=== PATIENT | female | born 1940 | race Caucasian/White ===

== ENCOUNTER 2018-12-12 19:10 | Inpatient (IN) | payer MEDICARE ==
[~2018-12-12] VITALS: Ht 154.9 cm; Wt 95.5 kg
[~2018-12-12 19:10] MED LIST: ASPI-1265 PO; ATOR40TA72 PO; CHOL100046 PO; DICL75TA5 PO; HYDR12.55 PO; LEVO150T8 PO; LIOT5TAB10 PO; LOSA50TA3 PO; MAGN64TA10 PO; METH750T3 PO; METO25TA6 PO; MULT-1085 PO; RANI150T8 PO
[2018-12-12 19:48] LABS: BASOPHILS % (AUTO) 0.6 % (0-1); EOSINOPHILS # (AUTO) 0.1 X10'3 (0-0.9); EOSINOPHILS % (AUTO) 1.3 % (0-6); HEMATOCRIT 42.9 % (35.0-45.0); HEMOGLOBIN 14.4 g/dl (12.0-16.0); LYMPHOCYTES # (AUTO) 1.5 X10'3 (1.1-4.8); MEAN CORPUSCULAR HEMOGLOBIN 32.1 PG (27.0-31.0); MEAN CORPUSCULAR HGB CONC 33.6 g/dL (33.0-36.5); MEAN CORPUSCULAR VOLUME 95.5 FL (78-98); MONOCYTES # (AUTO) 0.7 X10'3 (0-0.9); MONOCYTES % (AUTO) 8.1 % (2-12); NEUTROPHILS # (AUTO) 6.1 X10'3 (1.8-7.7); PLATELET COUNT 265 X10'3 (140-440); RED CELL DISTRIBUTION WIDTH 14.1 % (11.5-14.5); WHITE BLOOD COUNT 8.4 X10'3 (4.5-11.0)
[2018-12-12 19:52] LABS: PARTIAL THROMBOPLASTIN TIME 23 SECONDS (22-32)
[2018-12-12 19:54] LABS: ALANINE AMINOTRANSFERASE 22 U/L (12-78); ALBUMIN 3.5 G/DL (3.4-5.0); ALKALINE PHOSPHATASE 108 IU/L (46-116); ANION GAP 10 (8-16); ASPARTATE AMINO TRANSFERASE 18 U/L (10-37); BILIRUBIN,TOTAL 0.5 MG/DL (0.1-1.0); BLOOD UREA NITROGEN 7 MG/DL (7-18); BUN/CREATININE RATIO 9.9 (6.6-38.0); CALCIUM 8.7 MG/DL (8.5-10.1); CHLORIDE 107 MMOL/L (99-107); CREATININE 0.71 MG/DL (0.40-0.90); GLUCOSE 113 MG/DL (70-104); POTASSIUM 3.2 MMOL/L (3.5-5.1); SODIUM 144 MMOL/L (135-145); TOTAL CARBON DIOXIDE 27.1 MMOL/L (24-32); TOTAL PROTEIN 6.9 G/DL (6.4-8.2); eGFR 80 ML/MIN
[2018-12-12 19:57] LABS: LIPASE 60 U/L (73-393); TROPONIN I < 0.04 NG/ML (0.0-0.05)
[2018-12-12] MEDS ORDERED: fentaNYL/PF 50MCG/1 ML 2ML syringe IV ONE ×3 (20:10→23:05)
[2018-12-12] MEDS ORDERED: ondansetron/PF 4mg/2ml inj IV ONE (20:10)
[2018-12-12 20:45] LABS: CLARITY,URINE CLEAR (Clear); COLOR,URINE YELLOW (Yellow); GLUCOSE, URINE NEGATIVE (Neg); KETONES,URINE NEGATIVE (Neg); LEUKOCYTE ESTERASE ,URINE NEGATIVE (Neg); NITRITES, URINE NEGATIVE (Neg); OCCULT BLOOD,URINE NEGATIVE (Neg); PROTEIN,URINE NEGATIVE (Neg); UROBILINOGEN,URINE 0.2 E.U/dL (0.2-1.0)
[2018-12-12 20:54] LABS: UA COLLECTION TYPE OTHER
--- NOTE | 2018-12-12 22:24 | NUR ---
PT UP WITH SBA TO [facility]. VOIDING 250 CC'S. JUST GIVEN FENTANYL 25 MCG IV FOR PAIN OF 8 OUT OF 10 TO RIGHT HIP AND MID ABDOMEN. SON AT BEDSIDE.
[2018-12-13] MEDS ORDERED: potassium Cl 20 mEq SR tablet PO PRN (00:45)
[2018-12-13] MEDS ORDERED: mag hydrox/Alum hydrox/simeth 30ml oral suspension PO PRN (00:45)
[2018-12-13] MEDS ORDERED: ondansetron/PF 4mg/2ml inj IV ONE (00:45)
[2018-12-13] MEDS ORDERED: ondansetron/PF 4mg/2ml inj IV PRN (00:45)
[2018-12-13] MEDS ORDERED: HYDROcodone/acetaminophen 5mg/325mg tablet PO PRN (00:45)
[2018-12-13] MEDS ORDERED: acetaminophen 325mg tablet PO PRN ×2 (00:45)
[2018-12-13] MEDS ORDERED: magnesium hydroxide 30ml (MOM) UD suspension PO PRN (00:45)
[2018-12-13] MEDS ORDERED: potassium CL 10mEq/100ml bag 100 ML IV PRN ×2 (00:45)
[2018-12-13] MEDS ORDERED: metoclopramide 5 mg/ml inj IV PRN (00:45)
[2018-12-13] MEDS: normal saline 1000ml 1,000 ML IV SCH ×3 (01:30→23:31)
[2018-12-13 02:00] VITALS: BP 162/78
[2018-12-13] MEDS: HYDROmorphone inj. 0.5 MG/0.5 ML DISP.SYRIN IV PRN ×4 (02:22→23:32)
--- NOTE | 2018-12-13 07:03 | NUR ---
Problems reprioritized. Patient report given, questions answered & plan of care reviewed with RIMA. Addendum: 12/13/18 at 0704 by Vipin Hill RN Amended: Links added.
--- NOTE | 2018-12-13 07:18 | NUR ---
Patient in room [facility]. I have received report from Josh FINCH and had the opportunity to ask questions and assume patient care.
[2018-12-13] MEDS: K and/or MAG REPLACEMENT MC SCH (08:34)
[2018-12-13] MEDS: potassium Cl 20 mEq SR tablet PO PRN ×2 (08:51→17:58)
[2018-12-13] MEDS: aspirin 81mg tab.chew PO SCH (08:53)
[2018-12-13] MEDS: multivitamins, therapeutics tablet PO SCH (08:53)
[2018-12-13] MEDS: vitamin D (cholecalciferol) 1,000 unit tablet PO SCH (08:54)
[2018-12-13] MEDS: levoTHYROXINE 75mcg tablet PO SCH (08:55)
[2018-12-13] MEDS: enoxaparin 40mg/0.4ml syringe SUBCUT SCH (08:55)
[2018-12-13] MEDS: liothyronine sod 5mcg tablet PO SCH (08:56)
[2018-12-13] MEDS: losartan 50mg tablet PO SCH (08:56)
[2018-12-13] MEDS: magnesium Cl slow-release 64mg tablet PO SCH (08:56)
[2018-12-13] MEDS: HYDROchlorothiazide 12.5mg capsule PO SCH (08:56)
[2018-12-13] MEDS: famotidine 20mg tablet PO SCH (08:56)
[2018-12-13] MEDS: metoprolol tartrate 25mg tablet PO SCH (08:57)
[2018-12-13] MEDS: atorvastatin 20mg tablet PO SCH (08:58)
[2018-12-13] MEDS: cyclobenzaprine 10mg tablet PO SCH ×3 (08:58→21:27)
--- NOTE | 2018-12-13 09:12 | NUR ---
Student Medication Administration: For this medication-pass time frame, all medication were reviewed, dispensed, administered and documented per hospital policy by Aliyah RATLIFF [facility].
--- NOTE | 2018-12-13 11:24 | NUR ---
Patient in room [facility]. I have received report from Chiquita and had the opportunity to ask questions and assume patient care.
--- NOTE | 2018-12-13 11:58 | NUR ---
Problems reprioritized. Patient report given, questions answered & plan of care reviewed with Lupe.
--- NOTE | 2018-12-13 18:09 | NUR ---
Problems reprioritized. Patient report given, questions answered & plan of care reviewed with Megha FINCH.
--- NOTE | 2018-12-13 18:38 | NUR ---
Problems reprioritized. Patient report given, questions answered & plan of care reviewed with Markus FINCH.
--- NOTE | 2018-12-13 18:45 | NUR ---
Patient in room [facility]. I have received report from Arik Leon RN and had the opportunity to ask questions and assume patient care.
--- NOTE | 2018-12-13 19:32 | NUR ---
patient refused VSS from [employer] @ 1900, she did not want to move because she is in pain. She requested pain medication and when I brought it in for her she was crying and refused it. I asked her why she was crying and she told me that she hurt. I explained that the pain medication would help relive her pain, and help her relax. She still refused the medication. I told her to let me know when she decides that she wants it. I informed her that i knew she wanted to be left alone now but in awhile I will need to do an assessment on her. She yelled out;" I am not a 12 year old, just leave me alone"!
[2018-12-13] MEDS ORDERED: temazepam 15mg capsule PO PRN (21:00)
--- NOTE | 2018-12-13 21:00 | NUR ---
Patient still is refusing pain medication, and for me to do an assessment on her. She dis take prescribed medication. Once again I informed her that the pain medication would relieve her pain and make her more comfortable. She stated she want to be left alone. I told her if she changed her mind to turn on the call light. I also offered her a warm pack to put against her left hip and she agreed to that. Her pain is from her left hip not her abdomen.
[2018-12-13] MEDS ORDERED: hyDRALAzine 10mg tablet PO PRN (21:30)
[2018-12-14] VITALS: BP 154/81
[2018-12-14 05:51] LABS: ANION GAP 6 (8-16); BLOOD UREA NITROGEN 8 MG/DL (7-18); BUN/CREATININE RATIO 10.1 (6.6-38.0); CALCIUM 8.6 MG/DL (8.5-10.1); CHLORIDE 109 MMOL/L (99-107); CREATININE 0.79 MG/DL (0.40-0.90); GLUCOSE 93 MG/DL (70-104); POTASSIUM 3.7 MMOL/L (3.5-5.1); SODIUM 143 MMOL/L (135-145); TOTAL CARBON DIOXIDE 27.8 MMOL/L (24-32); eGFR 71 ML/MIN
[2018-12-14 05:57] LABS: BASOPHILS % (AUTO) 0.6 % (0-1); EOSINOPHILS # (AUTO) 0.2 X10'3 (0-0.9); EOSINOPHILS % (AUTO) 3.4 % (0-6); HEMATOCRIT 38.9 % (35.0-45.0); HEMOGLOBIN 13.1 g/dl (12.0-16.0); LYMPHOCYTES # (AUTO) 1.8 X10'3 (1.1-4.8); LYMPHOCYTES % (AUTO) 26.5 % (21-51); MEAN CORPUSCULAR HEMOGLOBIN 32.4 PG (27.0-31.0); MEAN CORPUSCULAR HGB CONC 33.6 g/dL (33.0-36.5); MEAN CORPUSCULAR VOLUME 96.4 FL (78-98); MEAN PLATELET VOLUME 8.2 FL (7.4-10.4); MONOCYTES # (AUTO) 0.7 X10'3 (0-0.9); NEUTROPHILS # (AUTO) 3.9 X10'3 (1.8-7.7); NEUTROPHILS % (AUTO) 59.5 % (42-75); PLATELET COUNT 215 X10'3 (140-440); RED BLOOD COUNT 4.03 X10'6 (4.20-5.60); RED CELL DISTRIBUTION WIDTH 14.5 % (11.5-14.5); WHITE BLOOD COUNT 6.6 X10'3 (4.5-11.0)
--- NOTE | 2018-12-14 06:35 | NUR ---
Patient in room [facility]. I have received report from STEF RDZ and had the opportunity to ask questions and assume patient care.
[2018-12-14] MEDS: normal saline 1000ml 1,000 ML IV SCH (06:42)
--- NOTE | 2018-12-14 06:49 | NUR ---
Problems reprioritized. Patient report given, questions answered & plan of care reviewed with Marivel and Melany FINCH.
[2018-12-14 07:00] VITALS: BP 127/72
[2018-12-14] MEDS: HYDROmorphone inj. 0.5 MG/0.5 ML DISP.SYRIN IV PRN (07:53)
[2018-12-14] MEDS: K and/or MAG REPLACEMENT MC SCH (08:00)
[2018-12-14] MEDS: cyclobenzaprine 10mg tablet PO SCH (10:13)
[2018-12-14 10:16] VITALS: BP_SYST 127
[2018-12-14] MEDS: metoprolol tartrate 25mg tablet PO SCH (10:16)
[2018-12-14] MEDS: magnesium Cl slow-release 64mg tablet PO SCH (10:17)
[2018-12-14] MEDS: vitamin D (cholecalciferol) 1,000 unit tablet PO SCH (10:17)
[2018-12-14] MEDS: aspirin 81mg tab.chew PO SCH (10:17)
[2018-12-14] MEDS: liothyronine sod 5mcg tablet PO SCH (10:17)
[2018-12-14] MEDS: HYDROchlorothiazide 12.5mg capsule PO SCH (10:18)
[2018-12-14] MEDS: famotidine 20mg tablet PO SCH (10:18)
[2018-12-14] MEDS: multivitamins, therapeutics tablet PO SCH (10:18)
[2018-12-14] MEDS: losartan 50mg tablet PO SCH (10:18)
[2018-12-14] MEDS: levoTHYROXINE 75mcg tablet PO SCH (10:19)
[2018-12-14] MEDS: atorvastatin 20mg tablet PO SCH (10:19)
[2018-12-14] MEDS: enoxaparin 40mg/0.4ml syringe SUBCUT SCH (10:25)
--- NOTE | 2018-12-14 11:40 | NUR ---
PT DICHARGED HOME WITH SON, IV TAKEN OUT, NO TELE, ALL BELONGINGS TAKEN FROM ROOM, NO NEW MEDS, PT APPROPRIATE FOR DISCHARGE, TAKEN OUT IN WHEEL CHAIR TO [facility]
== END 2018-12-14 11:40 | disposition home or self-care (01) | DRG 392 ==
LOC: ER 19:10 → OBSVTOIN 12-13 01:16 → SUR 3N 12-13 01:16 → CMPBEDREQ 12-13 01:19
PROVIDERS: ADMIT Hospitalist; ATTEND Family Medicine
DX: K29.70 Gastritis, unspecified, without bleeding (principal); E03.9 Hypothyroidism, unspecified; E78.5 Hyperlipidemia, unspecified; E87.6 Hypokalemia; I10 Essential (primary) hypertension; M25.552 Pain in left hip; T39.395A Adverse effect of other nonsteroidal anti-inflammatory drugs [NSAID], initial encounter; K21.0 Gastro-esophageal reflux disease with esophagitis; Z96.641 Presence of right artificial hip joint; Z96.653 Presence of artificial knee joint, bilateral; G89.29 Other chronic pain; M19.90 Unspecified osteoarthritis, unspecified site; M54.9 Dorsalgia, unspecified; Z79.899 Other long term (current) drug therapy; Z91.041 Radiographic dye allergy status; Z91.048 Other nonmedicinal substance allergy status; Z90.49 Acquired absence of other specified parts of digestive tract; Z79.82 Long term (current) use of aspirin; Z79.890 Hormone replacement therapy; Y92.89 Other specified places as the place of occurrence of the external cause
CPT/HCPCS: 36415; 74176; 74181; 76700; 80048; 80053; 81003; 83690; 84484; 85025; 85610; 85730; 87081; 93005; 96374; 96375; 96376; 99285; G0378; J1170; J1650; J2405; J3010; J7030

== ENCOUNTER 2019-01-30 08:13 | Inpatient (IN) | payer MEDICARE ==
[2019-01-24 11:21] LABS: CLARITY,URINE SLIGHTLY CLOUDY (Clear); COLOR,URINE YELLOW (Yellow); GLUCOSE, URINE NEGATIVE (Neg); KETONES,URINE NEGATIVE (Neg); LEUKOCYTE ESTERASE ,URINE TRACE (Neg); NITRITES, URINE NEGATIVE (Neg); OCCULT BLOOD,URINE NEGATIVE (Neg); PH,URINE 6.5 (4.8-8.0); PROTEIN,URINE NEGATIVE (Neg); UROBILINOGEN,URINE 0.2 E.U/dL (0.2-1.0)
[2019-01-24 11:28] LABS: UA COLLECTION TYPE VOIDED
[2019-01-24 11:33] LABS: BACTERIA,URINE 1+ /HPF (Neg); RBC,URINE 0-2 /HPF (0-2); SQUAMOUS EPITHELIAL CELL,UR MANY /LPF (FEW)
[2019-01-24 11:34] LABS: WBC CLUMPS,URINE FEW /HPF (NEGATIVE)
[2019-01-24 11:35] LABS: BASOPHILS % (AUTO) 0.6 % (0-1); EOSINOPHILS # (AUTO) 0.3 X10'3 (0-0.9); EOSINOPHILS % (AUTO) 3.8 % (0-6); LYMPHOCYTES # (AUTO) 1.1 X10'3 (1.1-4.8); LYMPHOCYTES % (AUTO) 15.8 % (21-51); MEAN CORPUSCULAR HEMOGLOBIN 32.4 PG (27.0-31.0); MEAN CORPUSCULAR HGB CONC 33.8 g/dL (33.0-36.5); MEAN CORPUSCULAR VOLUME 96.1 FL (78-98); MEAN PLATELET VOLUME 7.7 FL (7.4-10.4); MONOCYTES # (AUTO) 0.5 X10'3 (0-0.9); MONOCYTES % (AUTO) 7.4 % (2-12); NEUTROPHILS # (AUTO) 5.1 X10'3 (1.8-7.7); NEUTROPHILS % (AUTO) 72.4 % (42-75); PRE OP HEMATOCRIT 42.6 % (35.0-45.0); PRE OP HEMOGLOBIN 14.4 g/dL (12.0-16.0); PRE OP PLATELET COUNT 232 X10'3 (140-440); RED BLOOD COUNT 4.43 X10'6 (4.20-5.60); RED CELL DISTRIBUTION WIDTH 14.4 % (11.5-14.5)
[2019-01-24 11:35] LABS: MUCUS STRANDS FEW /LPF (Neg)
[2019-01-24 11:44] LABS: PRE OP INR 1.1 INR; PRE OP PROTIME 11.3 SECONDS (9.0-12.0)
[2019-01-24 11:54] LABS: ALBUMIN 3.5 G/DL (3.4-5.0); ALBUMIN/GLOBULIN RATIO 0.9 (1.1-1.5); ALKALINE PHOSPHATASE 117 IU/L (46-116); BLOOD UREA NITROGEN 17 MG/DL (7-18); BUN/CREATININE RATIO 20.5 (6.6-38.0); CALCIUM 9.1 MG/DL (8.5-10.1); CHLORIDE 106 MMOL/L (99-107); CREATININE 0.83 MG/DL (0.40-0.90); PRE OP ALT 22 U/L (30-65); PRE OP ANION GAP 6 (8-16); PRE OP AST 24 U/L (10-37); PRE OP BILIRUB, TOTAL 0.6 MG/DL (0.0-1.0); PRE OP GLUCOSE 119 MG/DL (70-104); PRE OP POTASSIUM 3.7 MMOL/L (3.4-5.1); PRE OP SODIUM 144 MMOL/L (135-145); TOTAL CARBON DIOXIDE 31.8 MMOL/L (24-32); TOTAL PROTEIN 7.3 G/DL (6.4-8.2); eGFR 67 ML/MIN
[~2019-01-30] VITALS: Ht 154.9 cm; Wt 90.4 kg
[2019-01-30] VITALS (21 sets, daily range): BP systolic 96–185; BP diastolic 44–94
[2019-01-30] MEDS: HYDROchlorothiazide 12.5mg capsule PO SCH (08:00)
[2019-01-30] MEDS: magnesium Cl slow-release 64mg tablet PO SCH (08:00)
[2019-01-30] MEDS: liothyronine sod 5mcg tablet PO SCH (08:00)
[2019-01-30] MEDS: cetirizine 10mg tablet PO SCH (08:00)
[2019-01-30] MEDS: gabapentin 300mg capsule PO SCH ×3 (08:00→20:29)
[2019-01-30] MEDS: levoTHYROXINE 75mcg tablet PO SCH (08:00)
[2019-01-30] MEDS: ascorbic acid 500mg tablet PO SCH ×2 (08:00→20:30)
[2019-01-30] MEDS: atorvastatin 20mg tablet PO SCH (08:00)
[2019-01-30] MEDS: metoprolol tartrate 25mg tablet PO SCH (08:00)
[2019-01-30] MEDS: multivitamins, therapeutics tablet PO SCH (08:00)
[2019-01-30] MEDS: oxybutynin 5mg tablet PO SCH ×3 (08:00→20:30)
[~2019-01-30 08:13] MED LIST changes: -ASPI-1265 PO; +BUPR1PAT TOP; +CETI-194 PO; +DICL50TA6 PO; -DICL75TA5 PO; +DOCUMENT DATE & TIME OF BETA-BLOCKER PO ONE; +GABA600T13 PO; +HYDROmorphone 1 mg/ml syringe IV PRN; +HYDROmorphone inj. 0.5 MG/0.5 ML DISP.SYRIN IV PRN; -LOSA50TA3 PO; -METH750T3 PO; +OXYB5TAB16 PO; +POTA20TA19 PO; -RANI150T8 PO; +TEMA15CA5 PO; +THIO300C PO; +VANCOMYCIN INJ 1000 MG in NORMAL SALINE 250ml IV.SOLN IV ONE; +[UNRECOGNIZED DRUG - CODE] PO; +acetaminophen 325mg tablet PO ONE; +acetaminophen 325mg tablet PO PRN; +bisacodyl 10mg suppository rectal RC PRN; +cefazolin/dext.iso 2gm/50ml 50 ML IV ONE; +celeCOXIB 100mg capsule PO ONE; +diphenhydrAMINE 25mg capsule PO PRN; +famotidine 20mg tablet PO ONE; +gabapentin 300mg capsule PO ONE; +magnesium hydroxide 30ml (MOM) UD suspension PO PRN; +metoclopramide 5 mg/ml inj IV ONE; +ondansetron/PF 4mg/2ml inj IV PRN; +oxyCODONE SR 10mg (sust. release) tab -2 tabs (20mg) PO ONE; +potassium Cl 20 mEq SR tablet PO SCH; +ringers solution, lacted 1,000 ML IV SCH; +temazepam 15mg capsule PO PRN; +tranexamic acid inj. 1,000 MG in normal saline 100 ML IV ONE; +vancomycin inj 1,500 MG in normal saline 300ml IV soln IV ONE
[2019-01-30] MEDS: aspirin 325mg tablet PO SCH (08:30)
[2019-01-30] MEDS ORDERED: cloNIDine hcl/PF 100mcg/ml inj ONE (10:34)
[2019-01-30] MEDS ORDERED: epiNEPHrine 1 mg/ml inj ONE (10:34)
[2019-01-30] MEDS ORDERED: ROPIVAcaine 0.5% (5mg/ml) 30ml vial ONE (10:34)
[2019-01-30] MEDS ORDERED: ketorolac trometh. 30mg/ml inj. ONE (10:34)
[2019-01-30] MEDS ORDERED: vancomycin 1,000mg inj ONE (10:34)
[2019-01-30] MEDS ORDERED: sevoflurane 250ml liquid IH ONE (10:44)
[2019-01-30] MEDS ORDERED: fentaNYL /PF 50mcg/ml 5ml ampule ONE (10:54)
[2019-01-30] MEDS ORDERED: propofol inj 20 ML IV ONE (12:02)
[2019-01-30] MEDS ORDERED: rocuronium 10mg/ml inj IV ONE (12:02)
[2019-01-30] MEDS ORDERED: acetaminophen 1,000mg/100ml IV 100 ML IV ONE (12:02)
[2019-01-30] MEDS ORDERED: ringers solution, lacted 1,000 ML IV SCH (12:08)
[2019-01-30] MEDS ORDERED: proCHLORperazine 10 MG/2 ml inj IV PRN (12:10)
[2019-01-30] MEDS ORDERED: meperidine/PF 25mg/ml syringe IV PRN ×2 (12:10)
[2019-01-30] MEDS ORDERED: morphine 4 MG/ML inj SYRINge IV PRN (12:10)
[2019-01-30] MEDS ORDERED: ondansetron/PF 4mg/2ml inj IV PRN (12:10)
[2019-01-30] MEDS ORDERED: neostigmine methylsulfate 1 MG/ML 10ml vial ONE (12:15)
[2019-01-30] MEDS ORDERED: glycopyrrolate 0.2mg/ml inj ONE (12:15)
--- NOTE | 2019-01-30 12:39 | NUR ---
Received from OR via , accompanied by Anesthesiologist DR STAUFFER and report given by Anesthesiolgist. AWAKENS TO VOICE. VITALS STABLE. DRESSING DI. STATES PAIN TO LT HIP. CHAVEZ WITH CLEAR URINE.
[2019-01-30] MEDS: morphine 4 MG/ML inj SYRINge IV PRN ×2 (13:01→13:15)
[2019-01-30] MEDS: meperidine/PF 25mg/ml syringe IV PRN ×2 (13:34→14:01)
--- NOTE | 2019-01-30 14:09 | NUR ---
Report called to receiving nurse. Transferred via BED Belongings . Special Issues communicated to receiving nurse. AWAKE AND ORIENTED. VITALS STABLE. DRESSING DI. STATES PAIN IMPROVING. TO ORTHO RM 4009C AT THIS TIME.
[2019-01-30] MEDS: potassium cl 20mEq in 1/2 NS 1,000 ML IV SCH ×3 (14:35→22:35)
[2019-01-30] MEDS ORDERED: tranexamic acid inj. 900 MG in normal saline 100ml IV soln 100 ML IV ONE (15:30)
[2019-01-30] MEDS: cefazolin/dext.iso 2gm/50ml 50 ML IV SCH (18:13)
--- NOTE | 2019-01-30 18:45 | NUR ---
Problems reprioritized. Patient report given, questions answered & plan of care reviewed with STEF Mejia.
[2019-01-30] MEDS: HYDROcodone/acetaminophen 10/325mg tab PO PRN ×2 (19:40→23:40)
[2019-01-30] MEDS: sennosides 8.6mg tablet PO SCH (20:29)
[2019-01-31] MEDS: cefazolin/dext.iso 2gm/50ml 50 ML IV SCH (01:14)
[2019-01-31 02:00] VITALS: BP 92/46
[2019-01-31 04:43] LABS: EOSINOPHILS # (AUTO) 0.4 X10'3 (0-0.9); HEMOGLOBIN 11.6 g/dl (12.0-16.0); LYMPHOCYTES # (AUTO) 1.6 X10'3 (1.1-4.8); MONOCYTES # (AUTO) 0.5 X10'3 (0-0.9); RED BLOOD COUNT 3.52 X10'6 (4.20-5.60); WHITE BLOOD COUNT 6.8 X10'3 (4.5-11.0)
[2019-01-31 04:45] LABS: ANION GAP 8 (8-16); BASOPHILS % (AUTO) 0.6 % (0-1); CHLORIDE 103 MMOL/L (99-107); EOSINOPHILS % (AUTO) 5.4 % (0-6); HEMATOCRIT 33.9 % (35.0-45.0); LYMPHOCYTES % (AUTO) 23.8 % (21-51); MEAN CORPUSCULAR HGB CONC 34.3 g/dL (33.0-36.5); MEAN CORPUSCULAR VOLUME 96.4 FL (78-98); MONOCYTES % (AUTO) 7.4 % (2-12); NEUTROPHILS # (AUTO) 4.3 X10'3 (1.8-7.7); NEUTROPHILS % (AUTO) 62.8 % (42-75); PLATELET COUNT 219 X10'3 (140-440); POTASSIUM 3.8 MMOL/L (3.5-5.1); RED CELL DISTRIBUTION WIDTH 14.7 % (11.5-14.5); SODIUM 140 MMOL/L (135-145); TOTAL CARBON DIOXIDE 29.5 MMOL/L (24-32)
[2019-01-31] MEDS: potassium cl 20mEq in 1/2 NS 1,000 ML IV SCH ×3 (04:59→22:39)
[2019-01-31] MEDS: HYDROcodone/acetaminophen 10/325mg tab PO PRN ×4 (05:02→20:52)
[2019-01-31 06:00] VITALS: BP 116/66
--- NOTE | 2019-01-31 06:18 | NUR ---
RECEIVED REPORT FROM STEF SIU
[2019-01-31] MEDS: metoprolol tartrate 25mg tablet PO SCH (08:00)
[2019-01-31] MEDS: HYDROchlorothiazide 12.5mg capsule PO SCH (08:00)
[2019-01-31] MEDS: gabapentin 300mg capsule PO SCH ×3 (08:22→20:44)
[2019-01-31] MEDS: levoTHYROXINE 75mcg tablet PO SCH (08:22)
[2019-01-31] MEDS: aspirin 325mg tablet PO SCH (08:23)
[2019-01-31] MEDS: atorvastatin 20mg tablet PO SCH (08:24)
[2019-01-31] MEDS: multivitamins, therapeutics tablet PO SCH (08:25)
[2019-01-31] MEDS: ascorbic acid 500mg tablet PO SCH ×2 (08:25→20:44)
[2019-01-31] MEDS: magnesium Cl slow-release 64mg tablet PO SCH (08:25)
[2019-01-31] MEDS: potassium chloride 10mEq ER tablet PO SCH (08:26)
[2019-01-31] MEDS: oxybutynin 5mg tablet PO SCH ×3 (08:27→20:44)
[2019-01-31] MEDS: liothyronine sod 5mcg tablet PO SCH (08:28)
[2019-01-31] MEDS: cetirizine 10mg tablet PO SCH (08:29)
[2019-01-31 10:00] VITALS: BP 91/44
[2019-01-31 14:00] VITALS: BP 132/71
--- NOTE | 2019-01-31 16:06 | NUR ---
Education: Patient is s/p total arthroplasty left hip, given written high protein education handout with verbal review d/t wound healing needs post op. She endorses a good appetite and eats her protein first on her meal. Will continue to follow per protocol. Addendum: 01/31/19 at [address] Amended: Links added.
[2019-01-31 18:00] VITALS: BP 90/57
--- NOTE | 2019-01-31 18:17 | NUR ---
gave report to lucinda perez
[2019-01-31] MEDS: sennosides 8.6mg tablet PO SCH (20:44)
[2019-01-31 22:00] VITALS: BP 122/60
[2019-02-01] MEDS: HYDROcodone/acetaminophen 10/325mg tab PO PRN ×5 (04:43→21:29)
[2019-02-01 06:00] VITALS: BP 91/46
--- NOTE | 2019-02-01 06:14 | NUR ---
Problems reprioritized. Patient report given, questions answered & plan of care reviewed with STEF RATLIFF.
[2019-02-01 06:18] LABS: BASOPHILS % (AUTO) 0.2 % (0-1); EOSINOPHILS # (AUTO) 0.5 X10'3 (0-0.9); EOSINOPHILS % (AUTO) 7.4 % (0-6); HEMATOCRIT 32.5 % (35.0-45.0); HEMOGLOBIN 11.1 g/dl (12.0-16.0); LYMPHOCYTES # (AUTO) 1.2 X10'3 (1.1-4.8); MEAN CORPUSCULAR HEMOGLOBIN 33.4 PG (27.0-31.0); MEAN CORPUSCULAR HGB CONC 34.1 g/dL (33.0-36.5); MEAN CORPUSCULAR VOLUME 97.7 FL (78-98); MEAN PLATELET VOLUME 8.2 FL (7.4-10.4); MONOCYTES # (AUTO) 0.6 X10'3 (0-0.9); MONOCYTES % (AUTO) 8.5 % (2-12); NEUTROPHILS % (AUTO) 67.9 % (42-75); PLATELET COUNT 183 X10'3 (140-440); RED BLOOD COUNT 3.32 X10'6 (4.20-5.60); RED CELL DISTRIBUTION WIDTH 14.6 % (11.5-14.5); WHITE BLOOD COUNT 7.3 X10'3 (4.5-11.0)
--- NOTE | 2019-02-01 06:22 | NUR ---
received report from lucinda perez
[2019-02-01] MEDS: liothyronine sod 5mcg tablet PO SCH (07:38)
[2019-02-01] MEDS: gabapentin 300mg capsule PO SCH ×3 (07:39→21:30)
[2019-02-01] MEDS: oxybutynin 5mg tablet PO SCH ×3 (07:39→21:30)
[2019-02-01] MEDS: potassium chloride 10mEq ER tablet PO SCH (07:39)
[2019-02-01] MEDS: atorvastatin 20mg tablet PO SCH (07:39)
[2019-02-01] MEDS: levoTHYROXINE 75mcg tablet PO SCH (07:40)
[2019-02-01] MEDS: HYDROchlorothiazide 12.5mg capsule PO SCH (07:40)
[2019-02-01] MEDS: aspirin 325mg tablet PO SCH (07:40)
[2019-02-01] MEDS: magnesium Cl slow-release 64mg tablet PO SCH (07:40)
[2019-02-01] MEDS: multivitamins, therapeutics tablet PO SCH (07:40)
[2019-02-01] MEDS: ascorbic acid 500mg tablet PO SCH ×2 (07:40→21:29)
[2019-02-01] MEDS: cetirizine 10mg tablet PO SCH (07:40)
[2019-02-01] MEDS: metoprolol tartrate 25mg tablet PO SCH (07:41)
[2019-02-01] MEDS ORDERED: Buprenorphine (Butrans) 1 PATCH TOP SCH (08:00)
[2019-02-01 10:00] VITALS: BP 119/96
--- NOTE | 2019-02-01 12:01 | NUR ---
Gave report to primary nurse Lilibeth FINCH, pt up in recliner chair, no s/s of distress at this time.
[2019-02-01 18:00] VITALS: BP 88/48
--- NOTE | 2019-02-01 18:16 | NUR ---
gave report to lucinda santoyo
[2019-02-01 19:00] VITALS: BP 105/56
[2019-02-01] MEDS: sennosides 8.6mg tablet PO SCH (21:30)
[2019-02-01 22:00] VITALS: BP 128/61
--- NOTE | 2019-02-02 00:59 | NUR ---
pt refused to get OOB to void. "don't touch my leg. and if you do, make sure you gently pull evenly on the leg. I don't have time to get up. I can't do it myself." educated on OOB with assist only and importance of increased activity with assist to help with bladder emptying. pt declined knee brace
[2019-02-02] MEDS: HYDROcodone/acetaminophen 10/325mg tab PO PRN ×2 (03:55→12:09)
--- NOTE | 2019-02-02 04:12 | NUR ---
noted pt incont urine. scanned bladder and found greater than 999ml. pt states she has some pressure. req to get to [facility] instead of [facility] but wants to wait an hour. educated pt on danger of sitting in urine and need for clean linen on incision/ dressing site. pt refused to get out of bed, got emotional and tearful "i just want to eat my crackers first. gave pt 10 min, then will return to change bed and get up to [facility].
[2019-02-02 06:00] VITALS: BP 120/52
--- NOTE | 2019-02-02 06:26 | NUR ---
dr. smith to see patient. wants pt to go home, but ok with rehab if pt doesn't do well with rehab
[2019-02-02 07:27] LABS: BASOPHILS % (AUTO) 0.2 % (0-1); EOSINOPHILS # (AUTO) 0.5 X10'3 (0-0.9); EOSINOPHILS % (AUTO) 5.6 % (0-6); HEMATOCRIT 34.1 % (35.0-45.0); HEMOGLOBIN 11.6 g/dl (12.0-16.0); LYMPHOCYTES # (AUTO) 0.7 X10'3 (1.1-4.8); LYMPHOCYTES % (AUTO) 7.9 % (21-51); MEAN CORPUSCULAR HGB CONC 34.1 g/dL (33.0-36.5); MEAN CORPUSCULAR VOLUME 96.7 FL (78-98); MEAN PLATELET VOLUME 7.8 FL (7.4-10.4); MONOCYTES # (AUTO) 0.7 X10'3 (0-0.9); MONOCYTES % (AUTO) 8.2 % (2-12); NEUTROPHILS # (AUTO) 7.1 X10'3 (1.8-7.7); NEUTROPHILS % (AUTO) 78.1 % (42-75); PLATELET COUNT 209 X10'3 (140-440); RED BLOOD COUNT 3.53 X10'6 (4.20-5.60); RED CELL DISTRIBUTION WIDTH 14.7 % (11.5-14.5); WHITE BLOOD COUNT 9.1 X10'3 (4.5-11.0)
[2019-02-02 08:28] VITALS: BP_SYST 123
[2019-02-02] MEDS: potassium chloride 10mEq ER tablet PO SCH (08:28)
[2019-02-02] MEDS: atorvastatin 20mg tablet PO SCH (08:28)
[2019-02-02] MEDS: metoprolol tartrate 25mg tablet PO SCH (08:28)
[2019-02-02] MEDS: liothyronine sod 5mcg tablet PO SCH (08:28)
[2019-02-02] MEDS: oxybutynin 5mg tablet PO SCH ×2 (08:28→12:09)
[2019-02-02] MEDS: HYDROchlorothiazide 12.5mg capsule PO SCH (08:29)
[2019-02-02] MEDS: aspirin 325mg tablet PO SCH (08:30)
[2019-02-02] MEDS: levoTHYROXINE 75mcg tablet PO SCH (08:30)
[2019-02-02] MEDS: cetirizine 10mg tablet PO SCH (08:30)
[2019-02-02] MEDS: multivitamins, therapeutics tablet PO SCH (08:30)
[2019-02-02] MEDS: gabapentin 300mg capsule PO SCH ×2 (08:30→12:09)
[2019-02-02] MEDS: ascorbic acid 500mg tablet PO SCH (08:30)
[2019-02-02] MEDS: magnesium Cl slow-release 64mg tablet PO SCH (08:30)
--- NOTE | 2019-02-02 08:30 | NUR ---
pt had a large void, into bedpan but it spilled so unmeasurable. Bladder is not distended or tender to palpation, pt denies feeling uncomfortable or that she needs to void any more. Bladder scan revealed 569 ml, pt will get up to [facility] to try to void Addendum: 02/02/19 at 1435 by Sofie Ang RN Amended: Links added.
--- NOTE | 2019-02-02 08:50 | NUR ---
bladder scan reveals 569 ml, pt will get up with PT up to commode to see if she can empty bladder
== END 2019-02-02 14:25 | DRG 470 ==
LOC: PAS IN 08:13 → EDSTATUS 11:15 → ORTHO 4S 15:00
PROVIDERS: ADMIT Orthopaedic Surgery; ATTEND Orthopaedic Surgery
PROC: 0SRB06A Replacement of Left Hip Joint with Oxidized Zirconium on Polyethylene Synthetic Substitute, Uncemented, Open Approach (ICD-10-PCS; principal; 2019-01-30 10:44)
DX: M16.12 Unilateral primary osteoarthritis, left hip (principal); D62 Acute posthemorrhagic anemia; G89.4 Chronic pain syndrome; E66.9 Obesity, unspecified; Z96.659 Presence of unspecified artificial knee joint; Z96.641 Presence of right artificial hip joint; I10 Essential (primary) hypertension; M25.752 Osteophyte, left hip; E78.5 Hyperlipidemia, unspecified; E03.9 Hypothyroidism, unspecified; Z87.891 Personal history of nicotine dependence; Z91.041 Radiographic dye allergy status; Z91.048 Other nonmedicinal substance allergy status; Z79.899 Other long term (current) drug therapy; Z79.82 Long term (current) use of aspirin; Z79.890 Hormone replacement therapy; Z90.49 Acquired absence of other specified parts of digestive tract; Z86.14 Personal history of Methicillin resistant Staphylococcus aureus infection; Z68.37 Body mass index [BMI] 37.0-37.9, adult
CPT/HCPCS: 36415; 71046; 72170; 80051; 80053; 81001; 82948; 84443; 85025; 85610; 85730; 86885; 86900; 86901; 87081; 97110; 97116; 97162; 97530; A4615; A7000; C1758; C1776; G0378; J0131; J0171; J0735; J1170; J1885; J2175; J2270; J2704; J2710; J2765; J2795; J3010; J3370; J3480; J3490; J7120